=== PATIENT | female | born 1995 | race Caucasian/White ===

== ENCOUNTER 2018-06-02 14:39 | Emergency (ER) | payer OTHER ==
[~2018-06-02] VITALS: Ht 162.6 cm; Wt 50.9 kg
[~2018-06-02 14:39] MED LIST: ACET-1257 PO; PENI-82 PO
[2018-06-02 14:41] VITALS: TEMP 36.7; Ht 162.6 cm; Wt 50.9 kg
[2018-06-02] MEDS ORDERED: SODIUM CHLORIDE 0.9% 1000ML 1,000 ML IV STA (14:46)
[2018-06-02] MEDS ORDERED: ALBUT/IPRATROP 3MG/0.5MG NEB 3 ML VIAL INH STA (14:46)
[2018-06-02] MEDS ORDERED: KETOROLAC TROMETHAMINE 30 MG/ML VIAL IV STA (14:46)
[2018-06-02 15:02] VITALS: O2SAT 99
[2018-06-02] MEDS ORDERED: GUAI200T11 PO (15:08)
[2018-06-02 15:15] LABS: BASO % 1.1 %; BASO ABS # 0.05 K/uL (0-0.2); EOS % 17.4 %; EOS ABS # 0.77 K/uL (0-0.5); HEMATOCRIT 45.6 % (37-47); HEMOGLOBIN 14.1 g/dL (12.0-16.0); LYMPH % 36.8 %; LYMPH ABS # 1.63 K/uL (1.2-3.4); MEAN CORPUSCULAR HEMOGLOBIN 21.3 pg (25-34); MEAN CORPUSCULAR HGB CONC 30.9 g/dl (32-36); MONO ABS # 0.31 K/uL (0.11-0.59); NEUT % 37.7 %; NEUT ABS # 1.67 K/uL (1.4-6.5); PLATELET COUNT 305 K/uL (130-400); RED CELL DISTRIBUTION WIDTH CV 14.8 % (11.5-14.5); RED CELL DISTRIBUTION WIDTH SD 36.1 fL (36.4-46.3); WHITE BLOOD COUNT 4.43 K/uL (4.8-10.8)
[2018-06-02 15:38] LABS: ALBUMIN 4.2 gm/dl (3.4-5.0); ALKALINE PHOSPHATASE 63 U/L (45-117); ALT/SGPT 27 U/L (12-78); AST/SGOT 25 U/L (15-37); BLOOD UREA NITROGEN 9 mg/dl (7-18); CALCIUM 8.8 mg/dl (8.5-10.1); CARBON DIOXIDE 27 mmol/L (21-32); CREATININE 0.81 mg/dl (0.60-1.20); GLUCOSE 91 mg/dl (70-99); LIPASE 114 U/L (73-393); POTASSIUM 3.4 mmol/L (3.5-5.1); SODIUM 139 mmol/L (136-145); TOTAL PROTEIN 8.7 gm/dl (6.4-8.2)
--- NOTE | 2018-06-02 15:46 | DIAGNOSTIC IMAGING REPORT ---
CHEST ONE VIEW PORTABLE CLINICAL HISTORY: CHEST PAIN dyspnea COMPARISON STUDY: 08/21/2014 FINDINGS: The bones soft tissues and hemidiaphragms are normal. The cardiomediastinal silhouette is normal. The lungs are clear. The pulmonary vasculature is normal. IMPRESSION: Negative chest. The above report was generated using voice recognition software. It may contain grammatical, syntax or spelling errors. Electronically signed by: Brad Cook M.D. 06/02/2018 3:44 PM Dictated Date/Time: 06/02/2018 3:44 PM
--- NOTE | 2018-06-02 15:52 | EMERGENCY ROOM VISIT NOTE ---
History Report prepared by Obed: Jaxon Thompson Under the Supervision of: Dr. Manjit Marshall M.D. First contact with patient: 14:44 Chief Complaint: COUGH Stated Complaint: CHEST PAIN, SEVERE COUGHING History of Present Illness The patient is a 23 year old female who presents to the Emergency Room with complaints of an intermittent dry cough that began 3 weeks ago. Patient describes the symptoms as "severe". She adds she has waxing and waning chest pain due to her cough. Patient states her chest pain is worsened with lying down /breathing deeply and relieved with sitting up. She states her symptoms worsened last night which caused her to come to the ER today. Patient denies seeing her PCP for these symptoms. She states she has taken cough medication and cough drops for her symptoms. She denies taking Ibuprofen. Patient denies a history of asthma or smoking. She denies living with anyone that smokes. Family history includes asthma. Patient states her last menstrual period was 2-3 days ago. Patient states she is unemployed. Patient denies fevers, chills, nausea, vomiting, diarrhea, leg pain, and productive coughs. Patient is present with her mother. Source of History: patient Onset: 3 weeks ago Position: chest Symptom Intensity: severe Timing: intermittent Modifying Factors (Worsening): breathing, other (Lying down) Modifying Factors (Relieving): other (Sitting up) Associated Symptoms: + chest pain, No fevers, No chills, No nausea, No vomiting, No diarrhea Review of Systems See HPI for pertinent positives and negatives. A total of ten systems were reviewed and were otherwise negative. Past Medical & Surgical Medical Problems: (1) Abdominal pain (2) H. pylori infection (3) No Known Active Medical Problems Family History FHx: asthma Social History Smoking Status: Never Smoker Housing Status: lives with family Occupation Status: unemployed Current/Historical Medications Scheduled Prednisone (Prednisone), 3 TAB PO DAILY Scheduled PRN Guaifenesin (Coughtab), 1 TAB PO 2-3XD PRN for Cough Ibuprofen Tab (Motrin), 800 MG PO Q8H PRN for Pain Allergies Coded Allergies: No Known Allergies (Unverified , 08/21/14) Physical Exam Vital Signs Date Time Temp Pulse Resp B/P (MAP) Pulse Ox O2 Delivery O2 Flow Rate FiO2 06/02/18 16:14 83 16 114/66 100 Room Air 06/02/18 15:15 89 06/02/18 15:03 99 Room Air 06/02/18 15:02 99 Room Air 06/02/18 14:41 36.7 111 17 120/81 99 Room Air Physical Exam GENERAL: Awake, alert, well-appearing, in no distress HENT: Normocephalic, atraumatic. Oropharynx unremarkable. Mucous membranes are dry. EYES: Normal conjunctiva. Sclera non-icteric. NECK: Supple. No nuchal rigidity. FROM. No JVD. RESPIRATORY: Clear to auscultation. CHEST: Mild reproducible anterior chest wall tenderness. CARDIAC: Tachycardic rate, normal rhythm. Extremities warm and well perfused. Pulses equal. ABDOMEN: Soft, non-distended. No tenderness to palpation. No rebound or guarding. No masses. RECTAL: Deferred. MUSCULOSKELETAL: Chest examination reveals no tenderness. The back is symmetrical on inspection without obvious abnormality. There is no CVA tenderness to palpation. No joint edema. LOWER EXTREMITIES: Calves are equal size bilaterally and non-tender. No edema. No discoloration. NEURO: Normal sensorium. No sensory or motor deficits noted. SKIN: No rash or jaundice noted. Medical Decision & Procedures ER Provider Diagnostic Interpretation: Radiology results as stated below per my review and radiologist interpretation: CHEST ONE VIEW PORTABLE CLINICAL HISTORY: CHEST PAIN dyspnea COMPARISON STUDY: 08/21/2014 FINDINGS: The bones soft tissues and hemidiaphragms are normal. The cardiomediastinal silhouette is normal. The lungs are clear. The pulmonary vasculature is normal. IMPRESSION: Negative chest. The above report was generated using voice recognition software. It may contain grammatical, syntax or spelling errors. Electronically signed by: Brad Cook M.D. 06/02/2018 3:44 PM Laboratory Results 06/02/18 15:05 Red Blood Count 6.61, Mean Corpuscular Volume 69.0, Mean Corpuscular Hemoglobin 21.3, Mean Corpuscular Hemoglobin Concent 30.9, Neutrophils (%) (Auto) 37.7, Lymphocytes (%) (Auto) 36.8, Monocytes (%) (Auto) 7.0, Eosinophils (%) (Auto) 17.4, Basophils (%) (Auto) 1.1, Neutrophils # (Auto) 1.67, Lymphocytes # (Auto) 1.63, Monocytes # (Auto) 0.31, Eosinophils # (Auto) 0.77, Basophils # (Auto) 0.05 06/02/18 15:05 Test 06/02/18 15:05 White Blood Count 4.43 K/uL (4.8-10.8) Red Blood Count 6.61 M/uL (4.2-5.4) Hemoglobin 14.1 g/dL (12.0-16.0) Hematocrit 45.6 % (37-47) Mean Corpuscular Volume 69.0 fL (80-100) Mean Corpuscular Hemoglobin 21.3 pg (25-34) Mean Corpuscular Hemoglobin Concent 30.9 g/dl (32-36) Platelet Count 305 K/uL (130-400) Neutrophils (%) (Auto) 37.7 % Lymphocytes (%) (Auto) 36.8 % Monocytes (%) (Auto) 7.0 % Eosinophils (%) (Auto) 17.4 % Basophils (%) (Auto) 1.1 % Neutrophils # (Auto) 1.67 K/uL (1.4-6.5) Lymphocytes # (Auto) 1.63 K/uL (1.2-3.4) Monocytes # (Auto) 0.31 K/uL (0.11-0.59) Eosinophils # (Auto) 0.77 K/uL (0-0.5) Basophils # (Auto) 0.05 K/uL (0-0.2) RDW Standard Deviation 36.1 fL (36.4-46.3) RDW Coefficient of Variation 14.8 % (11.5-14.5) Immature Granulocyte % (Auto) 0.0 % Immature Granulocyte # (Auto) 0.00 K/uL (0.00-0.02) Red Blood Cell Morphology Unremarkable Anion Gap 8.0 mmol/L (3-11) Est Creatinine Clear Calc Drug Dose 85.3 ml/min Estimated GFR () 117.0 Estimated GFR (Non- 100.9 BUN/Creatinine Ratio 10.8 (10-20) Calcium Level 8.8 mg/dl (8.5-10.1) Total Bilirubin 0.4 mg/dl (0.2-1) Direct Bilirubin 0.1 mg/dl (0-0.2) Aspartate Amino Transf (AST/SGOT) 25 U/L (15-37) Alanine Aminotransferase (ALT/SGPT) 27 U/L (12-78) Alkaline Phosphatase 63 U/L (45-117) Troponin I < 0.015 ng/ml (0-0.045) Total Protein 8.7 gm/dl (6.4-8.2) Albumin 4.2 gm/dl (3.4-5.0) Lipase 114 U/L (73-393) Human Chorionic Gonadotropin, Qual NEG (NEG) Laboratory results reviewed by me Medications Administered Medications (Trade) Dose Ordered Sig/Cha Route Start Time Stop Time Status Last Admin Dose Admin Sodium Chloride 1,000 ml @ 999 mls/hr Q1H1M STAT IV 06/02/18 14:46 06/02/18 15:46 DC 06/02/18 15:11 999 MLS/HR Ketorolac Tromethamine (Toradol Inj) 15 mg NOW STAT IV 06/02/18 14:46 06/02/18 14:52 DC 06/02/18 15:12 15 MG Albuterol/ Ipratropium (Duoneb) 3 ml NOW STAT INH 06/02/18 14:46 06/02/18 14:52 DC 06/02/18 15:03 3 ML Albuterol (Ventolin Hfa Inhaler) 2 puffs NOW STAT INH 06/02/18 15:56 06/02/18 15:57 DC 06/02/18 16:14 2 PUFFS Prednisone (PredniSONE TAB) 60 mg NOW STAT PO 06/02/18 15:56 06/02/18 15:57 DC 06/02/18 16:14 60 MG ECG Per My Interpretation Indication: chest pain Rate (beats per minute): 93 Rhythm: normal sinus Findings: no acute ischemic change, other (Normal axis) ED Course 1445: The patient was evaluated in room C6. A complete history and physical exam was performed. 1604: I reevaluated the patient. Discussed results and discharge instructions. She verbalized understanding and agreement. The patient is ready for discharge. Medical Decision I reviewed the patient's past medical history, medications, and the nursing notes as described above. Differential diagnosis: Etiologies such as cardiac ischemia, aortic dissection, pulmonary embolism, pneumonia, pneumothorax, musculoskeletal, infections, pericarditis, myocarditis , esophageal rupture, gastrointestinal, as well as others were entertained. The patient is a 23 yo woman who presents to the emergency department with persistent cough/congestion and chest pain for the past several weeks per HPI. On arrival the patient is in NAD, AF with HR 110s but otherwise stable vital signs. On exam the patient appears clinically dry. Lungs CTAB but with upper airway congestion. EKG unremarkable. CXR negative. WBC 4.4 c/w viral infection. Troponin negative is the setting of prolonged sx. Patient improved after IVF, toradol, duoneb. Heart score 0, low risk, acs unlikely. Given URI and CW sx PE not likely. Given reassuring EKG and reproducible CW tenderness pericarditis not likely. No tearing pain and equal pulses, dissection not likely. Sx most c/ w viral bronchitis with associated costochondritis. Plan for prednisone, NSAIDS , albuterol and pcp f/u. Findings and plan for follow-up reviewed with patient. Patient agreeable and d/c'd per discharge instructions. Medication Reconcilliation Current Medication List: was personally reviewed by me Blood Pressure Screening Patient's blood pressure: Normal blood pressure Blood pressure disposition: Did not require urgent referral Impression Primary Impression: Acute bronchitis Scribe Attestation The scribe's documentation has been prepared under my direction and personally reviewed by me in its entirety. I confirm that the note above accurately reflects all work, treatment, procedures, and medical decision making performed by me. Departure Information Dispostion Home / Self-Care Prescriptions Ibuprofen Tab (MOTRIN) 800 Mg Tab 800 MG PO Q8H Y for Pain for 7 Days, #21 TAB Prov: Manjit Marshall M.D. 06/02/18 Prednisone (Prednisone) 20 Mg Tab 3 TAB PO DAILY for 4 Days, #12 TAB FOR 4 DAYS Prov: Manjit Marshall M.D. 06/02/18 Referrals [facility] (PCP) Patient Instructions ED Bronchitis Asthmatic, My [facility] Additional Instructions Please follow up with your primary care physician in the next 1-3 days for re- evaluation. Your symptoms are most likely due to a viral bronchitis. Otherwise, your exam, EKG, chest xray, and lab results did not show signs of an emergent condition at this time. Acetaminophen or ibuprofen for pain and fevers as needed. Prednisone as directed. Saline nasal spray and [id number] Mucinex to help thin a clear mucus as needed. Albuterol 2 puffs every 4 hours for the next 48 hours and then as needed thereafter. Drink plenty of fluids to ensure hydration. Return to the emergency department for worsening symptoms as described in the accompanying instructions.
[2018-06-02] MEDS ORDERED: PRED20TA PO (15:54)
[2018-06-02] MEDS ORDERED: IBUP-1451 PO (15:54)
[2018-06-02] MEDS ORDERED: ALBUTEROL HFA 8 GM INHALER INH STA (15:56)
[2018-06-02 16:14] VITALS: BP 114/66; PULSE 83; O2SAT 100
== END 2018-06-02 16:43 | disposition home or self-care (01) ==
LOC: C.EDB 14:40 → C.EDC 16:43
DX: J20.9 Acute bronchitis, unspecified (principal)